=== PATIENT | female | born 1985 | race Caucasian/White ===

== ENCOUNTER 2017-10-08 06:55 | Day surgery (SDC) | payer BC ==
[~2017-10-08] VITALS: Ht 175.3 cm; Wt 72.6 kg
[~2017-10-08 06:55] MED LIST: WELLBUTRIN SR150 MG PO
--- NOTE | 2017-10-09 09:29 | OR ---
[facility] [address], [place] [address] Signed DATE OF OPERATION: 10/08/2017 SURGEON: Patricia Lay MD PREOPERATIVE DIAGNOSES: 1. Epigastric abdominal pain. 2. Periumbilical and left lower quadrant abdominal pain. 3. Rectal bleeding. 4. Maternal grandmother, maternal aunts, and maternal uncles all with colonic polyps. 5. Nausea and diarrhea. 6. Melena. POSTOPERATIVE DIAGNOSES: 1. Small hiatal hernia. 2. Mild gastritis. 3. A 12 mm pedunculated polyp at 15 cm (tattoo). 4. A 4 mm polyp distal sigmoid colon. PROCEDURES: 1. EGD with CLOtest and biopsies of the duodenum, antrum GE junction, and mid esophagus. 2. Colonoscopy with snare polypectomy and injection of tattoo as well as cold biopsies in the terminal ileum, right colon, transverse colon, left colon, sigmoid colon, and rectum. ESTIMATED BLOOD LOSS: None. INDICATIONS: Corona is a 31-year-old female, who presented with a number of different abdominal issues. Those are listed above. She has tried some Zantac and omeprazole and thought maybe she reacted to one of the drugs. Consequently, she switched over to sucralfate. When she did that she stopped taking the Wellbutrin. Unfortunately, I think the Wellbutrin is probably more important than the sucralfate. She thinks her lower abdominal pain could be worse with movement. She spoke of a partial hysterectomy at age 28 for benign indications over in [place]. At one point, she had a kidney stone extracted with ureteroscopy. She also mentioned her laparoscopic appendectomy when she was young. She had spent some time at [facility] and also with her primary care provider. 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 There was some concern about her PTSD and contributing to her abdominal symptoms. There was plan to do a Electronically Signed By: PATRICIA LAY MD 10/09/17 0929 PATIENT NAME: CORONA PATIÑO OPERATIVE REPORT DATE OF : 85 PHYSICIAN: PATRICIA LAY MD REPORT #: [id number] REPORT IS CONFIDENTIAL AND NOT TO BE RELEASED WITHOUT AUTHORIZATION [facility] [address], [place] [address] Signed colonoscopy mainly for the rectal bleeding. Unfortunately, it got rescheduled at least twice. Consequently, she came to see me here in [place]. She told me her maternal grandmother, maternal aunts, and maternal uncles all had colonic polyps. No one has had colon cancer in the family to her knowledge. No one has inflammatory bowel disease in the family. We had a long discussion in the office. We decided to proceed with both upper and lower endoscopy. I gave her pamphlets on both. We looked at that together along with the risks including, but not limited to, gas bloating, crampy abdominal pain, bleeding, perforation, requiring surgery, and missed diagnosis. We also discussed other possible test. We did review previous blood work and that has all been fine. In addition, she is using some Xanax for her stress and she also has multiple allergies. Consequently, we asked our anesthesia provider to help us with increased monitoring and sedation with propofol. That proved to be a crow decision, as she did use a fair amount of propofol today. She had expressed understanding and wished to proceed. PROCEDURE NOTE: Corona was taken into our endoscopy suite and placed in the supine semi-recumbent position. The posterior oropharynx was anesthetized with Hurricaine spray. A bite block was utilized for the case. She was given IV sedation with propofol per nurse convention planner. The adult gastroscope was introduced and advanced all the way out into the third portion of the duodenum under direct visualization of camera without difficulty. We took a biopsy of the duodenum for history of diarrhea. Otherwise, the duodenum and pyloric channel were unremarkable. Her stomach showed some very mild erythematous changes. Consequently, we took a biopsy of the antrum for pathologic review as well as CLOtest. Upon retroflexion of scope, I did not have the best view of her cardia, but I could see some of the stomach being drawn up in that area and it looks like she has a small hiatal hernia. We did not see any ulcerations in the stomach. No gastric or esophageal varices. The scope was withdrawn up to the GE junction, which was compliant without stricture. Again, she looks like she has a small hiatal hernia. She had a little bit inflammatory changes around the Z-line. We went ahead and took a biopsy from the Z-line for pathologic review. No Perez's mucosa, no distal esophagitis. We went ahead and took a biopsy of the midesophagus, although appeared unremarkable. The proximal esophagus was unremarkable. After this, the gastroscope was removed. Corona tolerated the upper endoscopy quite well. Corona was then rotated into the left lateral decubitus position. She was maintained on IV sedation with propofol per nurse convention planner. A digital rectal exam was performed and this was unremarkable. The adult colonoscope was introduced and advanced all around into the cecum under direct visualization of camera without difficulty. Her prep was quite excellent. We turned the camera went up into the terminal ileum about 15 cm. It looked quite healthy to us. We went ahead and took a couple biopsies of the terminal ileum because of her symptoms. The scope was withdrawn back into the colon and as we withdrew the colon, we took pictures throughout for photodocumentation. We also took cold Electronically Signed By: PATRICIA LAY MD 10/09/17 0929 PATIENT NAME: CORONA PATIÑO OPERATIVE REPORT DATE OF : 85 PHYSICIAN: PATRICIA LAY MD REPORT #: [id number] REPORT IS CONFIDENTIAL AND NOT TO BE RELEASED WITHOUT AUTHORIZATION [facility] [address], [place] [address] Signed biopsies in the right colon, transverse colon, left colon, and sigmoid colon. We also took a cold biopsy of the rectum as well. However, the entire colon was fine except for the 2 polyps. One was fairly large about 12 mm in length. It was pedunculated and fortunately, we were able to take that off with 2 bites of our snare. We then injected tattoo next to it to quincy its location. Hemostasis was excellent. Just above that in the distal sigmoid colon was a small polyp which we removed with a couple bites of the cold biopsy forceps. After this, the scope was brought back down in the rectum and retroflexed and we did not see any additional pathology above the anal canal. After this, the gas was suctioned out and the colonoscope removed. Corona tolerated the procedure quite well. RECOMMENDATIONS: I will see Corona back in my office in 7 to 14 days to review her results. She could also consider upper GI and a small bowel followthrough and/or capsule endoscopy. However, so far everything is coming out well. Patricia Lay MD ALB/MODL /[id number] cc: Yefri Collins NP Electronically Signed By: PATRICIA LAY MD 10/09/17 0929 PATIENT NAME: CORONA PATIÑO OPERATIVE REPORT DATE OF : 85 PHYSICIAN: PATRICIA LAY MD REPORT #: [id number] REPORT IS CONFIDENTIAL AND NOT TO BE RELEASED WITHOUT AUTHORIZATION
== END 2017-10-08 09:45 | disposition home or self-care (01) ==
LOC: OPS 06:55 → DS 06:55 → OPS 07:30 → DS 09:45 → OPS 09:45
PROVIDERS: Colon & Rectal Surgery
PROC: 0DB28ZX Excision of Middle Esophagus, Via Natural or Artificial Opening Endoscopic, Diagnostic (ICD-10-PCS; 2017-10-08)
PROC: 0DB48ZX Excision of Esophagogastric Junction, Via Natural or Artificial Opening Endoscopic, Diagnostic (ICD-10-PCS; 2017-10-08)
PROC: 0DBG8ZX Excision of Left Large Intestine, Via Natural or Artificial Opening Endoscopic, Diagnostic (ICD-10-PCS; 2017-10-08)
PROC: 0DBE8ZX Excision of Large Intestine, Via Natural or Artificial Opening Endoscopic, Diagnostic (ICD-10-PCS; 2017-10-08)
PROC: 0DBL8ZX Excision of Transverse Colon, Via Natural or Artificial Opening Endoscopic, Diagnostic (ICD-10-PCS; 2017-10-08)
PROC: 0DBF8ZX Excision of Right Large Intestine, Via Natural or Artificial Opening Endoscopic, Diagnostic (ICD-10-PCS; 2017-10-08)
PROC: 0DBP8ZX Excision of Rectum, Via Natural or Artificial Opening Endoscopic, Diagnostic (ICD-10-PCS; 2017-10-08)
PROC: 0DBN8ZX Excision of Sigmoid Colon, Via Natural or Artificial Opening Endoscopic, Diagnostic (ICD-10-PCS; 2017-10-08)
PROC: 3E0H8GC Introduction of Other Therapeutic Substance into Lower GI, Via Natural or Artificial Opening Endoscopic (ICD-10-PCS; 2017-10-08)
PROC: 0DB98ZX Excision of Duodenum, Via Natural or Artificial Opening Endoscopic, Diagnostic (ICD-10-PCS; principal; 2017-10-08 07:30)
PROC: 0DB78ZX Excision of Stomach, Pylorus, Via Natural or Artificial Opening Endoscopic, Diagnostic (ICD-10-PCS; 2017-10-08 07:30)
DX: D12.6 Benign neoplasm of colon, unspecified (principal); K63.5 Polyp of colon; K29.80 Duodenitis without bleeding; K44.9 Diaphragmatic hernia without obstruction or gangrene; K31.89 Other diseases of stomach and duodenum; F43.10 Post-traumatic stress disorder, unspecified; F17.210 Nicotine dependence, cigarettes, uncomplicated; Z90.49 Acquired absence of other specified parts of digestive tract; Z90.711 Acquired absence of uterus with remaining cervical stump; Z88.0 Allergy status to penicillin; Z88.8 Allergy status to other drugs, medicaments and biological substances
CPT/HCPCS: 00740; 86677; J2704

== ENCOUNTER 2019-09-03 06:50 | Day surgery (SDC) | payer OTHER, BC ==
[~2019-09-03] VITALS: Ht 175.3 cm; Wt 62.6 kg
[~2019-09-03 06:50] MED LIST changes: +ALLEGRA-D 12 H1 EACH PO; +NEURONTIN100 MG PO
--- NOTE | 2019-09-03 09:14 | NUR ---
09/03/19 0913 Dalia Laguna 0908 PT ARRIVED TO PACU ASLEEP AND WITH ORAL AIRWAY IN PLACE. RESP EVEN AND UNLABORED. PT NONAROUSABLE TO PAINFUL STIMULI. VSS.
--- NOTE | 2019-09-03 10:13 | NUR ---
0955: PATIENT BACK IN DAY SURGERY ROOM FROM PACU. PATIENT DROWSY. AWAKENS TO VOICE, BUT THEN FALLS BACK TO SLEEP QUICKLY. VS CHECKED. UMBILICAL DRESSING CDI. IV SITE WNL. SCDs ON. CALL LIGHT WITHIN REACH. AT BEDSIDE.
--- NOTE | 2019-09-03 10:23 | NUR ---
PATIENT MORE AWAKE. TOLERATING WATER. GIVEN CRACKERS. CALL LIGHT WITHIN REACH.
[2019-09-03] MEDS ORDERED: PERCOCET 10-321 EACH PO (10:43)
--- NOTE | 2019-09-03 11:27 | NUR ---
1030: PATIENT MEDICATED FOR 6/10 PAIN WITH 2 TABS OF NORCO. 1050: VS CHECKED. UMBILICUS DRESSING CLEAN, DRY AND INTACT. PATIENT ASSISTED OOB AND TO BATHROOM. GAIT STEADY. VOID WITHOUT DIFFICULTY. GAIT STEADY BACK TO ROOM. PATIENT GETTING DRESSED. 1112: DISCHARGE INSTRUCTIONS GIVEN TO PATIENT AND . IV DC'D WNL. TIP INTACT. DRESSING APPLIED. PATIENT DISCHARGED TO HOME WITH VIA WHEELCHAIR.
--- NOTE | 2019-09-04 06:43 | OR ---
[facility] [address], [place] [address] Signed DATE OF OPERATION: 09/03/2019 SURGEON: Patricia Lya MD PREOPERATIVE DIAGNOSIS: Incarcerated paraumbilical trocar site incisional hernia (6 mm). POSTOPERATIVE DIAGNOSIS: Incarcerated umbilical hernia (6 mm). PROCEDURE PERFORMED: Primary umbilical herniorrhaphy with intraabdominal Ventralex mesh (4 cm). ESTIMATED BLOOD LOSS: None. INDICATIONS: Corona is a 33-year-old female, who has undergone 2 previous laparoscopic surgeries. The camera was placed through the umbilicus at the 6 o'clock position. One, she had her laparoscopic appendectomy at age 12 and then her laparoscopic assisted vaginal hysterectomy after her second child was born. Her started a [email or web address] business this summer. They have been extremely busy. She was helping with the heavy concrete and felt pain and swelling at the base of the umbilicus. She said it was quite miserable. She thinks she eventually got it pushed back inside, but she is not sure. She is obviously concerned. She had a small hernia. She had been to the urgent care clinic to be seen. An ultrasound was ordered and it showed a 6 mm fascial defect. Consequently, she was asked to see me as a local general surgeon. In the office, she was quite tender and somewhat difficult to examine. However, certainly she was pointing at the base of the umbilicus as area of the hernia. I gave her a brochure on hernias. We looked that very carefully. We reviewed umbilical versus incisional hernias. We reviewed primary suture repair versus mesh repair. She understands the expected intraop and postop course. There is risk to that surgery including but not limited to bleeding, infection, scarring, change in contour of the skin, damage to bowel, infection of mesh requiring removal, recurrent hernias, and chronic pain. She had expressed understanding and wished to proceed. PROCEDURE NOTE: I met with Corona and her in our preop area. We all agreed on the umbilical area as the site of the hernia. That was marked appropriately. After this, Corona was taken in the operating room and placed in the supine position under general endotracheal Electronically Signed By: PATRICIA LAY MD 09/04/19 0643 PATIENT NAME: CORONA PATIÑO OPERATIVE REPORT DATE OF : 85 REPORT #: [id number] PHYSICIAN: PATRICIA LAY MD PCP: Yefri Collins REPORT IS CONFIDENTIAL AND NOT TO BE RELEASED WITHOUT AUTHORIZATION [facility] [address] [place] [id number] Signed tube anesthesia. She was given preoperative antibiotics along with subcutaneous heparin. SCDs were utilized. She was then prepped and draped in usual sterile fashion. We used her previous infraumbilical transverse incision and we opened it up with the help of a #15 blade knife. This was carried down around the tissue bluntly and with the cautery. We the umbilicus from the fascial defect and found that she indeed had a small umbilical hernia with incarcerated fat. The previous trocar site was well healed on the inferior aspect of the umbilical hernia. The fascial defect was around 6 to 10 mm in diameter. Therefore, we chose our 4 cm round Ventralex mesh and we placed that into the abdomen and brought it up flush against the posterior abdominal wall. We closed the fascial defect transversely with a running #1 Prolene suture. Several passes of the suture went through the tab on the mesh to help keep it in place. The tab of the mesh was cut, flushed with the abdominal wall. The abdominal wall was then injected local anesthetic along with subcutaneous tissues. The wound was irrigated and suctioned out until clear. The umbilical skin was held down to the midline fascia with an interrupted 3-0 PDS suture. The dermis was reapproximated with interrupted 3-0 subcuticular Monocryl sutures. The skin edges were reapproximated a running 5-0 fast absorbing plain gut suture. Dry gauze and tape were then applied. Corona was then awakened from her anesthesia, extubated in the OR, and taken to recovery room in stable condition. Patricia Lay MD ALB/MODL /[id number] cc: DERRICK Philippe MD [place], NP Donald Maher, NP Copies: PATRICIA LAY MD Electronically Signed By: PATRICIA LAY MD 09/04/19 0643 PATIENT NAME: CORONA PATIÑO OPERATIVE REPORT DATE OF : 85 REPORT #: [id number] PHYSICIAN: PATRICIA LAY MD PCP: Yefri Collins REPORT IS CONFIDENTIAL AND NOT TO BE RELEASED WITHOUT AUTHORIZATION [address] [address] Signed ~ Electronically Signed By: PATRICIA LAY MD 09/04/19 0643 PATIENT NAME: CORONA PATIÑO OPERATIVE REPORT DATE OF : 85 REPORT #: [id number] PHYSICIAN: PATRICIA LAY MD PCP: Yefri Collins REPORT IS CONFIDENTIAL AND NOT TO BE RELEASED WITHOUT AUTHORIZATION
== END 2019-09-03 11:12 | disposition home or self-care (01) ==
LOC: DS 06:50
PROVIDERS: Colon & Rectal Surgery
PROC: 0WUF0JZ Supplement Abdominal Wall with Synthetic Substitute, Open Approach (ICD-10-PCS; principal; 2019-09-03 08:30)
DX: K42.0 Umbilical hernia with obstruction, without gangrene (principal); F43.10 Post-traumatic stress disorder, unspecified; F17.210 Nicotine dependence, cigarettes, uncomplicated; F41.0 Panic disorder [episodic paroxysmal anxiety]; F12.90 Cannabis use, unspecified, uncomplicated; I49.9 Cardiac arrhythmia, unspecified; Z88.0 Allergy status to penicillin; Z88.8 Allergy status to other drugs, medicaments and biological substances; Z88.6 Allergy status to analgesic agent; Z79.899 Other long term (current) drug therapy
CPT/HCPCS: 00750; C1781; J0330; J1100; J1644; J1885; J2250; J2405; J2704; J2765; J3010; J7121

== ENCOUNTER 2021-10-03 16:17 | Emergency (ER) | payer OTHER ==
[~2021-10-03] VITALS: Ht 175.3 cm; Wt 64.2 kg
[~2021-10-03 16:17] MED LIST changes: +PERCOCET 10-321 EACH PO
[2021-10-03] MEDS ORDERED: METHIMAZOLE5 MG PO (16:50)
[2021-10-03] MEDS ORDERED: ONDANSETRON ODT8 MG PO (19:03)
--- NOTE | 2021-10-03 19:44 | EKG ---
[facility] [address] [facility] [place] [address] Signed Normal sinus rhythm with sinus arrhythmia Rightward axis Borderline ECG No previous ECGs available Confirmed by CHRISTOPHER MCCALL MD ([id number]) on 10/03/2021 7:44:26 PM Electronically Signed By: CHRISTOPHER MCCALL MD 10/03/211943 PATIENT NAME: CORONA PATIÑO Electrocardiogram DATE OF : 85 PHYSICIAN: CHRISTOPHER MCCALL MD REPORT #: [id number] REPORT IS CONFIDENTIAL AND NOT TO BE RELEASED WITHOUT AUTHORIZATION
== END 2021-10-03 19:29 | disposition home or self-care (01) ==
LOC: ED 16:17
DX: R42 Dizziness and giddiness (principal); R55 Syncope and collapse; E03.9 Hypothyroidism, unspecified; F17.200 Nicotine dependence, unspecified, uncomplicated; Z88.8 Allergy status to other drugs, medicaments and biological substances; Z88.0 Allergy status to penicillin; Z79.899 Other long term (current) drug therapy
CPT/HCPCS: 80048; 83690; 84443; 85025; 93005; 93010; 96374; 99285-25; J2405